=== PATIENT | female | born 1945 | race Caucasian/White ===

== ENCOUNTER → 2016-12-22 | Outpatient (CLI) | payer SELFPAY ==
[~2016-12-22] MED LIST: ALEVE; CALCIUM 500 + D1 TAB PO; CERTAGEN PO; PREMPRO 0.3 MG/1 TAB PO; TOPROL XL PO; VITAMIN C PO
== END | disposition home or self-care (01) ==
LOC: CNIV 13:00
DX: Z13.6 Encounter for screening for cardiovascular disorders (principal)

== ENCOUNTER → 2017-01-11 | Outpatient (CLI) | payer MEDICARE, BC ==
--- NOTE | ~2017-01-11 | MY29 ---
[facility] A Service of [facility] & [facility] RADIOLOGY TEXT RESULTS PATIENT: ROMAN CASTRO LOCATION: [facility] : 43 UNIT #: [id number] AGE: [address]: Mumtaz Potter MD SEX: F ORDER DR: [id number] [facility] [address] [place], [place] [address] [id number] O MR#: [id number] Acc #: [id number] NAME: ROMAN CASTRO : 1945 SEX: F STUDY DATE/TIME: 01/11/2017 12:07 UNIT: [facility] ROOM: STUDY DESCRIPTION: MY LIBAN SCREENING W/ CAD BILAT Attending Physician: Mumtaz Potter M.D. Referring Physician: Mumtaz Potter M.D. Ordering Physician: Mumtaz Potter M.D. Primary Care Physician: Mumtaz Potter M.D. MEDICAL IMAGING REPORT This report is preliminary unless electronic signature is present EXAM Digital screening mammogram, 01/11/2017 HISTORY 71-year-old woman previous augmentation with explantation (?)dates. Annual screen. COMPARISON Mammograms date to 03/05/2009, with most recent 01/08/2016. FINDINGS Digital imaging of each breast was completed utilizing screening protocol. Review includes FDA-approved CAD device. Breast parenchyma is partially fatty replaced with residual fibroglandular opacities bilateral subareolar locations. Moderate right nipple retraction is present and stable. Residual silicone with granulomatous presentation projects adjacent to the upper chest wall, left breast. This is superimposed on the pectoralis major muscle. There is progressive calcification noted bilaterally in the implant beds. I see no suspicious mass characteristics. There are no interval occurring suspicious microcalcifications and no interval occurring architectural disturbance. IMPRESSION Benign mammogram as described. Annual screening recommended. Patients over the age of 40 are entered into a reminder system with target due date for the next mammogram. A result letter will also be sent to the patient. BIRADS: 2 Benign Finding [facility] A Service of [facility] & [facility] RADIOLOGY TEXT RESULTS PATIENT: ROMAN CASTRO LOCATION: [facility] : 43 UNIT #: [id number] AGE: [address]: Mumtaz Potter MD SEX: F ORDER DR: Dictated by... Jacky Regan M.D. THIS IS AN ELECTRONICALLY VERIFIED REPORT Jacky Regan M.D. at 01/12/2017 8:18 AM MARIA TERESA/nevin TD: 01/11/2017 16:53 JOB #: [id number] MEDICAL IMAGING REPORT Page 1 of 1 COPY
== END | disposition home or self-care (01) ==
LOC: CWCC 11:15
DX: Z12.31 Encounter for screening mammogram for malignant neoplasm of breast (principal); Z98.890 Other specified postprocedural states
CPT/HCPCS: G0202